=== PATIENT | female | born 1970 | race Caucasian/White ===

== ENCOUNTER 2018-10-16 12:32 | Observation (INO) | payer OTHER ==
[~2018-10-16] VITALS: Ht 167.6 cm; Wt 78.6 kg
[2018-10-16] MEDS ORDERED: CLON2TAB9 PO (12:55)
[2018-10-16] MEDS ORDERED: LISI-167 PO (12:55)
[2018-10-16] MEDS ORDERED: BUPR100T11 PO (12:55)
[2018-10-16] MEDS ORDERED: ONDANSETRON 2MG/ML, 2ML ONE (13:49)
[2018-10-16] MEDS ORDERED: MORPHINE SULFATE 4 MG/ML, 1ML ONE (13:50)
[2018-10-16] MEDS ORDERED: MORPHINE SULFATE 4 MG/ML, 1ML IVPush PRN ×2 (14:00→16:00)
[2018-10-16] MEDS ORDERED: ONDANSETRON 2MG/ML, 2ML IVPush ONE (14:00)
[2018-10-16 14:07] LABS: BASOPHILS # (AUTO) 0.03 x10^3/uL (0-0.1); BASOPHILS % (AUTO) 0 % (0-1); EOSINOPHILS # (AUTO) 0.09 x10^3/uL (0-0.4); EOSINOPHILS % (AUTO) 1 % (1-7); LYMPHOCYTES % (AUTO) 23 % (22-44); MD NO; MEAN CORPUSCULAR HEMOGLOBIN 32.2 pg (27.0-34.8); MEAN CORPUSCULAR VOLUME 94.7 fL (80-100); MEAN PLATELET VOLUME 9.3 fL (7.4-10.4); MONOCYTES # (AUTO) 0.52 x10^3/uL (0.2-0.8); MONOCYTES % (AUTO) 6 % (2-9); NEUTROPHILS # (AUTO) 5.81 x10^3/uL (1.8-6.8); NEUTROPHILS % (AUTO) 70 % (42-75); PLATELET COUNT 312 x10^3/uL (130-400); RED BLOOD COUNT 4.58 x10^6/uL (3.82-5.3); RED CELL DISTRIBUTION WIDTH 13.3 % (9.6-15.2)
[2018-10-16 14:19] LABS: ALBUMIN 4.2 g/dL (3.4-5.0); ANION GAP 10 mmol/L (5-15); CHLORIDE 106 mmol/L (98-107)
[2018-10-16 14:24] LABS: CREATININE 0.82 mg/dL (0.55-1.02); TROPONIN I < 0.015 ng/mL (0.000-0.045)
[2018-10-16] MEDS ORDERED: SODIUM CHLORIDE FLUSH 10ML SYR IVF ONE (15:00)
[2018-10-16] MEDS ORDERED: SODIUM CHLORIDE FLUSH 10ML SYR IVF PRN (15:30)
[2018-10-16] MEDS ORDERED: ENALAPRILAT 1.25 MG/ML, 2ML IVPush PRN (16:00)
[2018-10-16] MEDS ORDERED: BISACODYL 10 MG SUPP PR PRN (16:00)
[2018-10-16] MEDS ORDERED: ACETAMINOPHEN 325 MG TABLET PO PRN (16:00)
[2018-10-16] MEDS ORDERED: DOCUSATE 100 MG CAPSULE PO PRN (16:00)
[2018-10-16] MEDS ORDERED: ONDANSETRON 2MG/ML, 2ML IVPush PRN (16:00)
[2018-10-16] MEDS ORDERED: NITROGLYCERIN 0.4 MG BOTTLE (25 TABS) SL PRN (16:00)
[2018-10-16] MEDS ORDERED: POLYETHYLENE GLYCOL 17 GM PACKET PO PRN (16:00)
[2018-10-16 16:21] VITALS: BP 142/88
[2018-10-16] MEDS ORDERED: ALBU18HF INH (16:25)
[2018-10-16] MEDS ORDERED: CLON0.5T11 PO (17:30)
[2018-10-16] MEDS: BUPROPION 75 MG TABLET PO SCH (17:54)
[2018-10-16 18:23] LABS: TROPONIN I < 0.015 ng/mL (0.000-0.045)
[2018-10-16] MEDS ORDERED: MAALOX/HYOSCYAMINE/LIDOCAINE 45 ML BTL PO ONE (20:00)
[2018-10-16] MEDS ORDERED: METOCLOPRAMIDE 5 MG/ML, 2ML IVPush ONE (20:00)
[2018-10-16] MEDS ORDERED: DIPHENHYDRAMINE 50 MG/ML, 1ML IVPush ONE (20:00)
[2018-10-16 20:13] VITALS: BP 110/72
[2018-10-16] MEDS ORDERED: OMNIPAQUE 350 MG/ML, 100ML BOTTLE ONE (23:51)
[2018-10-17 01:09] LABS: TROPONIN I < 0.015 ng/mL (0.000-0.045)
[2018-10-17 02:42] VITALS: BP 102/67
[2018-10-17] MEDS: SODIUM CHLORIDE FLUSH 10ML SYR IVF SCH ×2 (05:27→07:59)
[2018-10-17] MEDS ORDERED: ASPIRIN 325 MG TABLET EC PO SCH (06:00)
[2018-10-17 06:22] LABS: CHOL/HDL RATIO 3.9; LDL/HDL RATIO 2.6 (0.5-3.0)
[2018-10-17] MEDS: BUPROPION 75 MG TABLET PO SCH (07:58)
[2018-10-17 08:10] VITALS: BP 102/64
[2018-10-17] MEDS ORDERED: REGADENOSON 0.4 MG/5 ML SYRINGE ONE (08:18)
[2018-10-17] MEDS ORDERED: LISINOPRIL 10 MG TABLET PO SCH (09:00)
[2018-10-17] MEDS ORDERED: CLONAZEPAM 5 MG PO SCH (09:00)
[2018-10-17 12:31] VITALS: BP 108/64
[2018-10-17] MEDS ORDERED: NAPR-857 PO (13:43)
[2018-10-17] MEDS ORDERED: NAPROXEN 500 MG TABLET PO ONE (14:00)
== END 2018-10-17 16:55 | disposition home or self-care (01) ==
LOC: ED 15:11 → 5SO 15:12 → INTOOBSV 15:12 → ED 15:53 → DCLOUNGE 10-17 16:45
PROVIDERS: ADMIT Emergency Medicine; ATTEND Emergency Medicine
DX: R07.9 Chest pain, unspecified (principal); F32.9 Major depressive disorder, single episode, unspecified; F41.9 Anxiety disorder, unspecified; R51 Headache; I11.9 Hypertensive heart disease without heart failure
CPT/HCPCS: 36415; 70450; 71045; 71275; 78452; 80048; 80061; 82040; 84443; 84484; 85025; 85379; 93005; 93017; 96374; 96375; 96376; 99285; A9502; C9898; G0378; J1200; J2405; J2765; J2785; Q9967